=== PATIENT | male | born 1965 | race Caucasian/White ===

== ENCOUNTER 2017-03-15 16:00 | Emergency (ER) | payer SELFPAY ==
[~2017-03-15] VITALS: Ht 162.6 cm; Wt 75.0 kg
[2017-03-15 16:01] VITALS: BP 133/76; PULSE 87; RESP 18; TEMP 98; O2SAT 100
--- NOTE | 2017-03-15 16:53 | RADRPT ---
EXAM DATE/TIME: 03/15/2017 16:19 [facility] COMPARISON: No previous studies available for comparison. INDICATIONS : Inflammation and swelling. Cut his left hand by his 5th digit 3 days ago at work. MEDICAL HISTORY : None. SURGICAL HISTORY : None. ENCOUNTER: Initial ACUITY: 3 days PAIN SCORE: 8/10 LOCATION: Left hand FINDINGS: Three view examination of the left hand demonstrates no acute fracture or malalignment. There is soft tissue swelling over the dorsum of the hand. The carpal bones appear intact. The interphalangeal an d metacarpophalangeal joints are intact. Bony mineralization is normal. CONCLUSION: Soft tissue swelling of the dorsum of the hand with no radiopaque foreign body or underlying bony abn ormality. Etienne Bernard MD on March 15, 2017 at 16:47 Board Certified Radiologist. This report was verified electronically.
[2017-03-15 17:17] LABS: AUTOMATED NEUTROPHIL # 9.4 TH/MM3 (1.8-7.7); BASOPHIL % 0.4 % (0.0-2.0); EOSINOPHIL # 0.2 TH/MM3 (0-0.4); EOSINOPHIL % 1.8 % (0.0-4.0); HEMATOCRIT 44.4 % (39.0-51.0); HEMOGLOBIN 15.4 GM/DL (13.0-17.0); LYMPH % 12.7 % (9.0-44.0); LYMPHOCYTE # 1.5 TH/MM3 (1.0-4.8); MEAN CELL VOLUME 90.8 FL (80.0-100.0); MEAN CORPUSCULAR HEMOGLOBIN 31.5 PG (27.0-34.0); MEAN CORPUSCULAR HGB CONC 34.7 % (32.0-36.0); MEAN PLATELET VOLUME 8.9 FL (7.0-11.0); MONO % 7.3 % (0.0-8.0); MONOCYTE # 0.9 TH/MM3 (0-0.9); NEUT % 77.8 % (16.0-70.0); PLATELET COUNT 206 TH/MM3 (150-450); RED BLOOD COUNT 4.88 MIL/MM3 (4.50-5.90)
[2017-03-15 17:34] LABS: ALBUMIN 3.9 GM/DL (3.4-5.0); AST (GOT) 18 U/L (15-37); BICARBONATE 23.8 MEQ/L (21.0-32.0); BLOOD UREA NITROGEN 17 MG/DL (7-18); CALCIUM 9.2 MG/DL (8.5-10.1); CHLORIDE 111 MEQ/L (98-107); CREATININE 1.01 MG/DL (0.60-1.30); GLOMERULAR FILTRATION RATE 78 ML/MIN (>89); GLUCOSE,RANDOM 111 MG/DL (74-106); SODIUM (NA) 143 MEQ/L (136-145)
[2017-03-15 17:35] LABS: ALT (GPT) 31 U/L (12-78)
[2017-03-15 17:37] LABS: ALKALINE PHOSPHATASE 66 U/L (45-117); TOTAL BILIRUBIN ADULT 0.8 MG/DL (0.2-1.0); TOTAL PROTEIN 7.1 GM/DL (6.4-8.2)
[2017-03-15 17:40] LABS: PROTHROMBIN TIME - PATIENT 10.5 SEC (9.8-11.6)
--- NOTE | 2017-03-15 18:08 | PD ---
HPI Chief Complaint: Skin Problem Time Seen by Provider: 16:08 Travel History International Travel<30 days: No Contact w/Intl Traveler<30days: No Traveled to known affect area: No History of Present Illness HPI Pt is a 51-year-old male presented to emergency department for evaluation of left hand swelling. Patient states he stuck his hand with a fork at work 3 days ago. Since that time he's been attempting to clean it and treat it with ihmy-kxo-ctpanap medications with no improvement. Patient states that has become more red, warm and swollen. There are no alleviating factors. Pain is exacerbated with movement and to touch. He reports pain as a 6 out of 10 and states it's aching and throbbing. Patient denies any IV drug use. Patient took ibuprofen and Benadryl for pain and again there was no improvement in his symptoms. [facility] Past Medical History Medical History: Denies Significant Hx Social History Tobacco Use: Yes Allergies-Medications (Allergen,Severity, Reaction): Coded Allergies: No Known Allergies (Unverified , 03/15/17) Review of Systems Except as stated in HPI: all other systems reviewed are Neg Musculoskeletal: Positive: Edema, Pain Skin: Positive Change in Pigmentation Physical Exam Narrative GENERAL: Well Developed, well-nourished, alert male. Presenting in no acute distress. SKIN: Warm and dry. Edema and erythema noted to left hand on the dorsal aspect , more so over the first and second fingers. HEAD: Normocephalic. EYES: No scleral icterus. No injection or drainage. CARDIOVASCULAR: Regular rate RESPIRATORY: No accessory muscle use. MUSCULOSKELETAL: No cyanosis, edema as stated above. No obvious deformities. Data Data Last Documented VS Vital Signs Date Time Temp Pulse Resp B/P (MAP) Pulse Ox O2 Delivery O2 Flow Rate FiO2 03/15/17 18:00 03/15/17 16:01 98.0 87 18 100 Room Air Orders Orders Complete Blood Count With Diff (03/15/17 16:10) Comprehensive Metabolic Panel (03/15/17 16:10) Prothrombin Time / Inr (Pt) (03/15/17 16:10) Act Partial Throm Time (Ptt) (03/15/17 16:10) Hand, Complete (Iot2xtp) (03/15/17 ) Labs Laboratory Tests Test 03/15/17 16:26 White Blood Count 12.0 TH/MM3 Red Blood Count 4.88 MIL/MM3 Hemoglobin 15.4 GM/DL Hematocrit 44.4 % Mean Corpuscular Volume 90.8 FL Mean Corpuscular Hemoglobin 31.5 PG Mean Corpuscular Hemoglobin Concent 34.7 % Red Cell Distribution Width 13.0 % Platelet Count 206 TH/MM3 Mean Platelet Volume 8.9 FL Neutrophils (%) (Auto) 77.8 % Lymphocytes (%) (Auto) 12.7 % Monocytes (%) (Auto) 7.3 % Eosinophils (%) (Auto) 1.8 % Basophils (%) (Auto) 0.4 % Neutrophils # (Auto) 9.4 TH/MM3 Lymphocytes # (Auto) 1.5 TH/MM3 Monocytes # (Auto) 0.9 TH/MM3 Eosinophils # (Auto) 0.2 TH/MM3 Basophils # (Auto) 0.0 TH/MM3 CBC Comment DIFF FINAL Differential Comment Prothrombin Time 10.5 SEC Prothromb Time International Ratio 1.0 RATIO Activated Partial Thromboplast Time 27.6 SEC Blood Urea Nitrogen 17 MG/DL Creatinine 1.01 MG/DL Random Glucose 111 MG/DL Total Protein 7.1 GM/DL Albumin 3.9 GM/DL Calcium Level 9.2 MG/DL Alkaline Phosphatase 66 U/L Aspartate Amino Transf (AST/SGOT) 18 U/L Alanine Aminotransferase (ALT/SGPT) 31 U/L Total Bilirubin 0.8 MG/DL Sodium Level 143 MEQ/L Potassium Level 3.5 MEQ/L Chloride Level 111 MEQ/L Carbon Dioxide Level 23.8 MEQ/L Anion Gap 8 MEQ/L Estimat Glomerular Filtration Rate 78 ML/MIN MDM Medical Decision Making Medical Screen Exam Complete: Yes Emergency Medical Condition: Yes Interpretation(s) Laboratory Tests Test 03/15/17 16:26 White Blood Count 12.0 TH/MM3 Red Blood Count 4.88 MIL/MM3 Hemoglobin 15.4 GM/DL Hematocrit 44.4 % Mean Corpuscular Volume 90.8 FL Mean Corpuscular Hemoglobin 31.5 PG Mean Corpuscular Hemoglobin Concent 34.7 % Red Cell Distribution Width 13.0 % Platelet Count 206 TH/MM3 Mean Platelet Volume 8.9 FL Neutrophils (%) (Auto) 77.8 % Lymphocytes (%) (Auto) 12.7 % Monocytes (%) (Auto) 7.3 % Eosinophils (%) (Auto) 1.8 % Basophils (%) (Auto) 0.4 % Neutrophils # (Auto) 9.4 TH/MM3 Lymphocytes # (Auto) 1.5 TH/MM3 Monocytes # (Auto) 0.9 TH/MM3 Eosinophils # (Auto) 0.2 TH/MM3 Basophils # (Auto) 0.0 TH/MM3 CBC Comment DIFF FINAL Differential Comment Prothrombin Time 10.5 SEC Prothromb Time International Ratio 1.0 RATIO Activated Partial Thromboplast Time 27.6 SEC Blood Urea Nitrogen 17 MG/DL Creatinine 1.01 MG/DL Random Glucose 111 MG/DL Total Protein 7.1 GM/DL Albumin 3.9 GM/DL Calcium Level 9.2 MG/DL Alkaline Phosphatase 66 U/L Aspartate Amino Transf (AST/SGOT) 18 U/L Alanine Aminotransferase (ALT/SGPT) 31 U/L Total Bilirubin 0.8 MG/DL Sodium Level 143 MEQ/L Potassium Level 3.5 MEQ/L Chloride Level 111 MEQ/L Carbon Dioxide Level 23.8 MEQ/L Anion Gap 8 MEQ/L Estimat Glomerular Filtration Rate 78 ML/MIN Last Impressions Hand X-Ray 03/15/17 0000 Signed Impressions: Service Date/Time: Wednesday, March 15, 2017 16:19 - CONCLUSION: Soft tissue swelling of the dorsum of the hand with no radiopaque foreign body or underlying bony abnormality. Etienne Bernard MD Vital Signs Date Time Temp Pulse Resp B/P (MAP) Pulse Ox O2 Delivery O2 Flow Rate FiO2 03/15/17 18:00 03/15/17 16:01 98.0 87 18 133/76 (95) 100 Room Air Differential Diagnosis Cellulitis versus abscess versus contusion versus fracture versus other Narrative Course Patient's 51-year-old male that presented to emergency department for evaluation of left hand swelling secondary to injuries that occurred 3 days ago. Patient's vital signs are stable, workup initiated in triage. Patient is awaiting bed placement. Patient was called to the bed it, he stated he could not longer wait because his was discharged and he needed to catch a bus home. Patient was advised that if he left his situation would likely worsen and he would benefit from further evaluation and management. Patient continued to decline to be seen. Patient left AMA. Patient Angela Conner has decided to leave the hospital against medical advice. This patient has the capacity to refuse care and understands the risks of leaving, including permanent disability and/or , and has had an opportunity to ask questions about his condition. The patient has been informed that he may return for care at any time, and follow up has been arranged/ advised. Labs and imaging were reviewed. Diagnosis Primary Impression: Left against medical advice Do Moncada Mar 15, 2017 18:08
== END 2017-03-15 18:00 | disposition left against medical advice (07) ==
LOC: NETRI 16:00
DX: M79.89 Other specified soft tissue disorders (principal); Z72.0 Tobacco use
CPT/HCPCS: 73130; 80053; 85025; 85610; 85730; 99284

== ENCOUNTER 2017-03-17 18:40 | Inpatient (IN) | payer OTHER ==
[~2017-03-17] VITALS: Ht 165.1 cm; Wt 73.3 kg
[~2017-03-17 18:40] MED LIST: LIDOCAINE HCL 1% PF 5 ML SYRINGE OTHER ONE; ONDANSETRON HCL 4 MG/2 ML VIAL IV ONE; PROPOFOL 200 MG/20 ML AMP IV ONE; SUCCINYLCHOLINE CHLORIDE 100 MG/5 ML SYRINGE IV PUSH ONE; ceFAZolin INJ 1,000 MG VIAL IV ONE
[2017-03-17 18:42] VITALS: BP 155/97; PULSE 79; RESP 18; TEMP 97.5; O2SAT 100
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
[2017-03-17] MEDS ORDERED: SODIUM CHLORIDE 0.9% FLUSH 10 ML FLUSH IVF PRN (19:30)
[2017-03-17 19:38] VITALS: BP 165/102; PULSE 69; RESP 18; O2SAT 100; O2SAT 99
[2017-03-17 20:04] LABS: AUTOMATED NEUTROPHIL # 8.9 TH/MM3 (1.8-7.7); BASOPHIL # 0.1 TH/MM3 (0-0.2); BASOPHIL % 0.7 % (0.0-2.0); EOSINOPHIL # 0.2 TH/MM3 (0-0.4); EOSINOPHIL % 1.7 % (0.0-4.0); HEMATOCRIT 45.5 % (39.0-51.0); HEMOGLOBIN 15.8 GM/DL (13.0-17.0); LYMPH % 15.4 % (9.0-44.0); LYMPHOCYTE # 1.8 TH/MM3 (1.0-4.8); MEAN CELL VOLUME 90.5 FL (80.0-100.0); MEAN CORPUSCULAR HEMOGLOBIN 31.4 PG (27.0-34.0); MEAN CORPUSCULAR HGB CONC 34.7 % (32.0-36.0); MEAN PLATELET VOLUME 9.5 FL (7.0-11.0); MONOCYTE # 0.8 TH/MM3 (0-0.9); NEUT % 75.2 % (16.0-70.0); PLATELET COUNT 259 TH/MM3 (150-450); RED BLOOD COUNT 5.03 MIL/MM3 (4.50-5.90); RED CELL DISTRIBUTION WIDTH 13.6 % (11.6-17.2); WHITE BLOOD COUNT 11.8 TH/MM3 (4.0-11.0)
[2017-03-17] MEDS ORDERED: DIPHTH/TETANUS/ACEL PERTUSSIS (BOOSTER) 0.5 ML VIAL/PFS IM ONE (20:45)
[2017-03-17] MEDS ORDERED: LIDOCAINE HCL 2% 50 ML VIAL ONE (20:45)
[2017-03-17] MEDS: SODIUM CHLORIDE 0.9% FLUSH 10 ML FLUSH IV FLUSH SCH (21:00)
[2017-03-17] MEDS ORDERED: MORPHINE SULFATE 2 MG/ML INJ IV PUSH PRN (21:00)
[2017-03-17] MEDS ORDERED: LACTULOSE SYRUP 20 GM/30 ML CUP PO PRN (21:00)
[2017-03-17] MEDS ORDERED: MAGNESIUM HYDROXIDE SUSP 30 ML CUP PO PRN (21:00)
[2017-03-17] MEDS ORDERED: SODIUM CHLORIDE 0.9% FLUSH 10 ML FLUSH IV FLUSH PRN (21:00)
[2017-03-17] MEDS ORDERED: SENNOSIDES 8.6 MG TAB PO PRN (21:00)
[2017-03-17] MEDS ORDERED: ACETAMINOPHEN/HYDROcodone 325 MG/10 MG TAB PO PRN (21:00)
[2017-03-17] MEDS ORDERED: ONDANSETRON HCL 4 MG/2 ML VIAL IVP PRN (21:00)
[2017-03-17] MEDS ORDERED: BISACODYL 10 MG SUPP RECTAL PRN (21:00)
[2017-03-17] MEDS ORDERED: NALOXONE HCL 0.4 MG/ML AMP IV PUSH PRN (21:00)
[2017-03-17] MEDS ORDERED: ACETAMINOPHEN/HYDROcodone 325 MG/5 MG TAB PO PRN (21:00)
[2017-03-17] MEDS ORDERED: ACETAMINOPHEN 325 MG TAB PO PRN (21:00)
[2017-03-17] MEDS: DOCUSATE SODIUM 50 MG/SENNA 8.6 MG TAB PO SCH (21:00)
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
[2017-03-17] MEDS ORDERED: VANCOMYCIN HCL 1000 MG VIAL ONE (21:18)
--- NOTE | 2017-03-17 21:29 | RADRPT ---
EXAM DATE/TIME: 03/17/2017 20:08 [facility] COMPARISON: No previous studies available for comparison. INDICATIONS : Short of breath. MEDICAL HISTORY : None. SURGICAL HISTORY : None. ENCOUNTER: Initial ACUITY: 3 days PAIN SCORE: 5/10 LOCATION: Bilateral chest FINDINGS: A single view of the chest demonstrates the lungs to be symmetrically aerated without evidence of mas s, infiltrate or effusion. The cardiomediastinal contours are unremarkable. Degenerative changes and scoliosis of the thoracic spine are noted. CONCLUSION: No acute cardiopulmonary disease. Degenerative changes and scoliosis of the thoracic spine. Diego Sanabria MD on March 17, 2017 at 21:26 Board Certified Radiologist. This report was verified electronically.
[2017-03-17 21:47] LABS: BICARBONATE 23.6 MEQ/L (21.0-32.0); C-REACTIVE PROTEIN 4.2 MG/DL (0.00-0.30); CALCIUM 8.9 MG/DL (8.5-10.1); CREATININE 0.96 MG/DL (0.60-1.30)
[2017-03-17 21:54] VITALS: O2SAT 100
[2017-03-17] MEDS ORDERED: ceFAZolin INJ 1,000 MG VIAL IV ONE (22:02)
[2017-03-17] MEDS ORDERED: *MEPERIDINE 25 MG INJ VIAL PERIprocedural Use ONLY ONE (22:29)
[2017-03-17] MEDS ORDERED: DO NOT ADM ANY ANTICOAGULANT DRUGS PRN (22:45)
[2017-03-17] MEDS: SODIUM CHLOR 0.9% 1000 ML INJ 1,000 ML IV SCH (23:05)
[2017-03-17 23:15] VITALS: BP 137/76; PULSE 85; RESP 16; TEMP 99; O2SAT 95
--- NOTE | 2017-03-17 23:21 | PD.ORT.PN ---
Subjective Subjective Remarks 51yM POD0 s/p I&D left small finger and hand abscess. Pain controlled in PACU Objective Vitals Vital Signs Date Time Temp Pulse Resp B/P (MAP) Pulse Ox O2 Delivery O2 Flow Rate FiO2 03/17/17 21:54 100 21 03/17/17 20:36 03/17/17 20:18 78 16 03/17/17 19:38 69 18 165/102 (123) 100 Room Air 03/17/17 19:38 99 Room Air 03/17/17 18:42 97.5 79 18 155/97 (116) 100 Room Air I/O 03/17/17 03/17/17 03/17/17 03/18/17 03/18/17 03/18/17 07:00 15:00 23:00 07:00 15:00 23:00 Intake Total 500 ml Output Total 10 ml Balance 490 ml Intake IV Total 500 ml Output Estimated Blood Loss 10 ml Result Diagram: 03/17/17 1915 03/17/172031 Imaging Last 24 hours Impressions Chest X-Ray 03/17/17 0000 Signed Impressions: Service Date/Time: Friday, March 17, 2017 20:08 - CONCLUSION: No acute cardiopulmonary disease. Degenerative changes and scoliosis of the thoracic spine. Diego Sanabria MD Objective Remarks dressing in place, <2 sec capillary refill fingers Assessment & Plan Assessment and Plan 51yM POD0 s/p I&D left small finger and hand abscess -Packing in place -Elevate left hand with colles sling -Continue IV Ab -Dressing changes to begin POD2 Betty Mehta MD Mar 17, 2017 23:21
[2017-03-18 04:35] VITALS: BP 128/73; PULSE 81; RESP 16; TEMP 97.9; O2SAT 97
[2017-03-18] MEDS: SODIUM CHLOR 0.9% 1000 ML INJ 1,000 ML IV SCH ×2 (05:59→08:37)
[2017-03-18] MEDS: SODIUM CHLORIDE 0.9% FLUSH 10 ML FLUSH IV FLUSH SCH ×2 (07:20→20:38)
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
[2017-03-18 08:28] VITALS: BP 141/77; PULSE 76; RESP 17; TEMP 97.9; O2SAT 97
[2017-03-18] MEDS: DOCUSATE SODIUM 50 MG/SENNA 8.6 MG TAB PO SCH ×2 (08:29→20:37)
[2017-03-18] MEDS: VANCOMYCIN 1 GM/200 ML PREMIX IV SCH ×2 (08:49→20:37)
[2017-03-18] MEDS ORDERED: VANCOMYCIN INJ 1,000 MG in SODIUM CHLOR 0.9% 250 ML INJ 250 ML IV SCH ×2 (09:00→21:00)
[2017-03-18] MEDS ORDERED: Vancomycin Consult Pharmacy 1 EA OTHER SCH (10:00)
[2017-03-18 10:03] VITALS: O2SAT 97
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
[2017-03-18 12:02] VITALS: BP 139/77; PULSE 81; RESP 16; TEMP 97.7; O2SAT 96
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
--- NOTE | 2017-03-18 13:52 | EKG ---
Date Performed: 03/17/2017 Time Performed: 19:58:53 PTAGE: 51 years EKG: Sinus rhythm NORMAL ECG NO PREVIOUS TRACING DOCTOR: Tavares Warren Interpretating Date/Time 03/18/2017 13:51:47
--- NOTE | 2017-03-18 13:54 | EKG ---
Date Performed: 03/17/2017 Time Performed: 22:51:46 PTAGE: 51 years EKG: Sinus rhythm WITH SINUS ARRHYTHMIA NONSPECIFIC T-WAVE ABNORMALITY When compared to previous tracing, sinus arrhyt hmia is new, Otherwise no significant change. BORDERLINE ECG PREVIOUS TRACING : 03/17/2017 19.58.53 DOCTOR: Tavares Warren Interpretating Date/Time 03/18/2017 13:53:45
[2017-03-18 16:02] VITALS: BP 139/77; PULSE 81; RESP 16; TEMP 98.7; O2SAT 96
[2017-03-18 20:00] VITALS: BP 132/75; PULSE 80; RESP 20; TEMP 98.7; O2SAT 98
--- NOTE | 2017-03-18 20:27 | MP ---
cc: BETTY MEHTA DATE OF SURGERY: 03/17/2017. PREOPERATIVE DIAGNOSIS: 1. Abscess left hand 2. Infection tendon sheath left small finger extensor tendon. POSTOPERATIVE DIAGNOSIS: 1. Abscess left hand 2. Infection tendon sheath left small finger extensor tendon. OPERATIVE PROCEDURE PERFORMED: 1. Incision and drainage abscess left hand 2. Incision and drainage extensor tendon sheath left small finger. SURGEON: Betty Mehta MD. ANESTHESIA: General and local. TOURNIQUET TIME: Six minutes at 200 mmHg. SPECIMEN: Cultures. DRAINS: Packing. 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 Since that time, he has had significant swelling and erythema over the hand. He did come to the hospital on 03/15/2017 but left without being seen due to the long wait. He re-presented today for evaluation. I recommended surgical intervention to drain the abscess and he elected to proceed. The risks were explained but not limited to wound complications, infection, sepsis, vascular compromise, need for additional surgery, stiffness, pain, and he elected to proceed. DESCRIPTION OF THE PROCEDURE IN DETAIL: The patient was identified in the preoperative holding area and the correct extremity was marked. The patient was taken tot he operating room where anesthesia was induced. The left upper extremity was prepped and draped in the normal sterile fashion. The tourniquet was inflated to 200 mmHg for six minutes. Incision was made over the dorsum of the left small finger metacarpophalangeal joint. Upon making the incision, there was significant purulence which was sent for culture. The extensor tendon sheath was debrided. This did not appear to go into the metacarpophalangeal joint. The wound was irrigated with three liters of antibiotic saline. The wound was closed loosely with a chromic and packing was placed. The patient will remain in the hospital on IV antibiotics. Will follow the cultures and he will elevate the hand. He may require additional surgeries. He should be off work at this time. Betty Mehta MD /MACRINA /11:14 PM /8:01 PM [facility]
[2017-03-19] VITALS (7 sets, daily range): BP systolic 125–144; BP diastolic 67–87; PULSE 67–79; RESP 16–18; TEMP 97.6–99.1; O2SAT 95–100
[2017-03-19] MEDS: DOCUSATE SODIUM 50 MG/SENNA 8.6 MG TAB PO SCH ×2 (09:00→20:17)
[2017-03-19] MEDS: SODIUM CHLORIDE 0.9% FLUSH 10 ML FLUSH IV FLUSH SCH ×2 (09:05→20:17)
[2017-03-19] MEDS: VANCOMYCIN 1 GM/200 ML PREMIX IV SCH ×2 (09:05→20:17)
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
[2017-03-20 00:54] VITALS: BP 124/69; PULSE 70; RESP 17; TEMP 98.9; O2SAT 99
[2017-03-20 04:53] VITALS: BP 117/62; PULSE 73; RESP 17; TEMP 98; O2SAT 99
[2017-03-20 08:02] VITALS: BP 135/88; PULSE 68; RESP 17; TEMP 98; O2SAT 99
[2017-03-20] MEDS ORDERED: PHARMACY ORDERED LAB ONE (08:45)
[2017-03-20] MEDS: VANCOMYCIN 1 GM/200 ML PREMIX IV SCH ×2 (09:00→09:25)
[2017-03-20] MEDS: SODIUM CHLORIDE 0.9% FLUSH 10 ML FLUSH IV FLUSH SCH (09:25)
[2017-03-20] MEDS: DOCUSATE SODIUM 50 MG/SENNA 8.6 MG TAB PO SCH (09:25)
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
[2017-03-20] MEDS ORDERED: ceFAZolin 2 GM PREMIX 50 ML IV SCH (10:45)
[2017-03-20] MEDS ORDERED: ACET325T15 PO (11:20)
[2017-03-20] MEDS ORDERED: PERI PO (11:20)
[2017-03-20] MEDS ORDERED: CEPH500C PO (11:20)
--- NOTE | 2017-03-20 11:24 | HHI.DCPOC ---
Discharge Care Plan Diagnosis: (1) Cellulitis of hand Goals to Promote Your Health * To prevent worsening of your condition and complications * To maintain your health at the optimal level Directions to Meet Your Goals Take your medications as prescribed Follow your dietary instruction Follow activity as directed Keep your appointments as scheduled Take your immunizations and boosters as scheduled If your symptoms worsen call your PCP, if no PCP go to Urgent Care Center or Emergency Room Smoking is Dangerous to Your Health. Avoid second hand smoke Call the 24-hour hour crisis hotline for domestic abuse at Lion Pollack MD R2 Mar 20, 2017 11:24
--- NOTE | 2017-03-20 11:26 | HHI.FF ---
Face to Face Verification Diagnosis: (1) Cellulitis of hand Home Health Nursing Order: Signs/symptoms of disease process Wound care and dressing changes Nursing assessment with vital signs Instructions: Wound care per Hand Surgery Recommendations -Change dressing with Adaptic, 4x4s, cling -Further recommendations please consult Dr. Mehta, Hand surgery I have seen patient Angela Conner on 03/20/17. My clinical findings support the need for the requested home health care services because: Ltd mobility - disease progression Infection w/ risk of complications I certify that my clinical findings support that this patient is homebound because: Post-op weakness Lion Pollack MD R2 Mar 20, 2017 11:26
[2017-03-20] MEDS ORDERED: CEPHALEXIN MONOHYDRATE 500 MG CAP PO SCH (12:00)
[2017-03-20 12:11] VITALS: BP 152/83; PULSE 78; RESP 17; TEMP 97.7; O2SAT 100
== END 2017-03-20 15:00 | disposition home or self-care (01) | DRG 513 ==
LOC: NEPE 18:40 → NEDA 20:34 → N04A 23:20
PROVIDERS: ADMIT Family Medicine; ATTEND Family Medicine
PROC: 0H9GXZX Drainage of Left Hand Skin, External Approach, Diagnostic (ICD-10-PCS; 2017-03-17)
PROC: 0LB80ZZ Excision of Left Hand Tendon, Open Approach (ICD-10-PCS; principal; 2017-03-17 21:11)
DX: M65.142 Other infective (teno)synovitis, left hand (principal); L03.114 Cellulitis of left upper limb; L02.512 Cutaneous abscess of left hand; A49.01 Methicillin susceptible Staphylococcus aureus infection, unspecified site; S61.432A Puncture wound without foreign body of left hand, initial encounter; W26.8XXA Contact with other sharp object(s), not elsewhere classified, initial encounter; Y99.0 Civilian activity done for income or pay; K59.00 Constipation, unspecified
CPT/HCPCS: 71045; 80048; 85025; 85652; 86140; 86403; 86850; 86900; 86901; 87015; 87070; 87102; 87116; 87147; 87186; 87205; 87206; 90471; 93005; 94150; J0330; J0690; J2175; J2405; J3010; J3370; J7030